=== PATIENT | male | born 1960 | race Caucasian/White ===

== ENCOUNTER 2019-09-18 12:02 | Day surgery (SDC) | payer OTHER ==
[~2019-09-18 12:02] MED LIST: ADULT LOW DOSE81 M1 PO; CENTRUM COMPLE1 EACH PO; ESOMEPRAZOLE MA40 MG PO; LOTREL 5-20 MG1 CAP PO; NEX PO; PLAVIX75 MG PO; RESTORIL30 M1 PO; RISPERDAL1 MG PO; [UNRECOGNIZED DRUG - OTHER]; [UNRECOGNIZED DRUG - OTHER]; [UNRECOGNIZED DRUG - OTHER] PO
== END 2019-09-18 18:46 | disposition home or self-care (01) ==
LOC: CIR.AMB 12:02
DX: M77.12 Lateral epicondylitis, left elbow (principal)